=== PATIENT | male | born 1940 | race Caucasian/White ===

== ENCOUNTER 2019-03-30 09:15 | Day surgery (SDC) | payer MEDICARE, MEDICAID ==
[~2019-03-30 09:15] MED LIST: AMLO10TA13 PO; BENA40TA8 PO; DOXA1TAB2 PO; GLIM4TAB79 PO; INSU100V9 SQ; METF500T7 PO; NAPR-996 PO; OMEP-50 PO; PIOG45TA65 PO; POTA8TAB8 PO; SIMV20TA5 PO
[2019-03-30] MEDS ORDERED: FURO-149 PO (10:04)
[2019-03-30] MEDS ORDERED: silver sulfadiazine cream 50gm TP ONE (10:13)
--- NOTE | 2019-03-30 11:00 | NUR ---
Patient arrived via wheelchair from [facility] and was admitted to outpatient wound care for physician visit with Leoncio Reid MD. Wound cleansed. New patient assessment completed with review of patient's medical history, current medications and allergies. 1000 - Dr. Reid at bedside accompanied by RN. Wound assessed, time out performed by MD/RN. Wound debrided as detailed in the physician progress/procedure note. Plan of care discussed with patient. Dressings placed per MD orders. Pt instructed to elevate legs at least 30 minutes 3 times a day or 10 minutes every 4 hours, also instructed check their toes. If they become purplish or blue, cool to the touch, numb or tingly, use a pair of scissors and carefully cut off the dressing. Call the Wound Center for an appointment to have the dressing reapplied. Pt instructed that decreased swelling in the legs and the potential for drainage from the wound may require them to have to schedule visits twice weekly, progressing to weekly as the swelling decreases in their legs. Pt instructed that if dressings become loose, wrinkled or falls down and if they are experiencing any pain or discomfort under their dressing cut the dressing off and call the Wound Center to have it reapplied. Pt instructed that the wrap needs to be kept dry. They may bath at a sink or there are devices designed to keep dressings dry these are available at most drug stores. If they choose to shower with a plastic bag taped over the wrap. Be sure to having another person available for assistance or placing towels on the floor of the shower or tub to eliminate the slick surface can reduce the risk of falls. Patient instructed on the signs and symptoms of infection and to call the Wound Center if any occur or to go to the ED if we are closed: Increased pain in wound Increase in drainage from the wound Redness in the skin surrounding the wound Bleeding from the wound Temperature of 101 or greater Patient instructed that the weight of their body puts a large amount of pressure on their wounds. This pressure keeps the new tissue from growing and inhibits new blood vessels from forming. Explained that, if they continue to bear weight on a body part that has a wound, the time it takes to heal the wound increases, the wound may get worse or the wound may not heal at all. Patient verbalized understanding of all discharge instructions and plan of care and exited via wheelchair out to [facility] in stable condition with no sign or symptom of distress at time of discharge.
== END 2019-03-30 10:30 | disposition home or self-care (01) ==
LOC: WOUND CARE 09:15
PROVIDERS: ATTEND Surgery
DX: I83.212 Varicose veins of right lower extremity with both ulcer of calf and inflammation (principal); E11.622 Type 2 diabetes mellitus with other skin ulcer; L97.212 Non-pressure chronic ulcer of right calf with fat layer exposed; L97.811 Non-pressure chronic ulcer of other part of right lower leg limited to breakdown of skin; I10 Essential (primary) hypertension; I25.2 Old myocardial infarction; F41.9 Anxiety disorder, unspecified; Z79.899 Other long term (current) drug therapy
CPT/HCPCS: 29581; 97597; A6223; A6212; A6441

== ENCOUNTER 2019-04-06 08:05 | Outpatient (CLI) | payer MEDICARE, MEDICAID ==
[~2019-04-06 08:05] MED LIST changes: +FURO-149 PO; -METF500T7 PO; -POTA8TAB8 PO; -SIMV20TA5 PO
--- NOTE | 2019-04-06 11:00 | NUR ---
Patient arrived from [facility] and was admitted to outpatient wound care for physician visit with Leoncio Reid MD. Dressing removed, wound cleansed. Patient assessed for changes in conditions, medications and medical history. 0944 - blood glucose 204. Patient instructed that elevated blood sugars delay healing of the wound and can cause further complications including but not limited to amputation of toes or feet. 1020 - Dr. Reid at bedside accompanied by RN. Wound assessed by MD and is declared healed. Patient is discharged from the clinic to follow up on an as needed basis. Plan of care discussed with patient. Dressings placed per MD orders. Pt instructed to elevate legs at least 30 minutes 3 times a day or 10 minutes every 4 hours, also instructed check their toes. If they become purplish or blue, cool to the touch, numb or tingly, use a pair of scissors and carefully cut off the dressing. Call the Wound Center for an appointment to have the dressing reapplied. Pt instructed that decreased swelling in the legs and the potential for drainage from the wound may require them to have to schedule visits twice weekly, progressing to weekly as the swelling decreases in their legs. Pt instructed that if dressings become loose, wrinkled or falls down and if they are experiencing any pain or discomfort under their dressing cut the dressing off and call the Wound Center to have it reapplied. Pt instructed that the wrap needs to be kept dry. They may bath at a sink or there are devices designed to keep dressings dry these are available at most drug stores. If they choose to shower with a plastic bag taped over the wrap. Be sure to having another person available for assistance or placing towels on the floor of the shower or tub to eliminate the slick surface can reduce the risk of falls. Patient instructed on the signs and symptoms of infection and to call the Wound Center if any occur or to go to the ED if we are closed: Increased pain in wound Increase in drainage from the wound Redness in the skin surrounding the wound Bleeding from the wound Temperature of 101 or greater Patient instructed that the weight of their body puts a large amount of pressure on their wounds. This pressure keeps the new tissue from growing and inhibits new blood vessels from forming. Explained that, if they continue to bear weight on a body part that has a wound, the time it takes to heal the wound increases, the wound may get worse or the wound may not heal at all. Patient verbalized understanding of all discharge instructions and plan of care and exited out to lobby in stable condition with no sign or symptom of distress at time of discharge.
== END 2019-04-06 11:04 | disposition home or self-care (01) ==
LOC: WOUND CARE 08:05 → EDSTATUS 09:00 → WOUND CARE 11:04
PROVIDERS: ATTEND Surgery
DX: I83.212 Varicose veins of right lower extremity with both ulcer of calf and inflammation (principal); E11.622 Type 2 diabetes mellitus with other skin ulcer; L97.212 Non-pressure chronic ulcer of right calf with fat layer exposed; L97.811 Non-pressure chronic ulcer of other part of right lower leg limited to breakdown of skin; L97.821 Non-pressure chronic ulcer of other part of left lower leg limited to breakdown of skin; L89.322 Pressure ulcer of left buttock, stage 2; L98.411 Non-pressure chronic ulcer of buttock limited to breakdown of skin; I10 Essential (primary) hypertension; I25.2 Old myocardial infarction; F41.9 Anxiety disorder, unspecified; Z79.899 Other long term (current) drug therapy
CPT/HCPCS: 29581; 36416; 82948; A6021; A6212; A6441

== ENCOUNTER 2020-05-09 11:02 | Inpatient (IN) | payer MEDICARE, MEDICAID ==
[~2020-05-09] VITALS: Ht 185.4 cm; Wt 163.2 kg
[~2020-05-09 11:02] MED LIST changes: +GLIM4TAB7 PO; -GLIM4TAB79 PO
[2020-05-09 11:31] LABS: BASOPHILS % (AUTO) 0.5 % (0-1); EOSINOPHILS # (AUTO) 0.4 X10'3 (0-0.9); EOSINOPHILS % (AUTO) 5.2 % (0-6); HEMATOCRIT 32.8 % (42.0-52.0); HEMOGLOBIN 10.9 g/dl (14.0-17.9); LYMPHOCYTES # (AUTO) 1.2 X10'3 (1.1-4.8); LYMPHOCYTES % (AUTO) 15.2 % (21-51); MEAN CORPUSCULAR HEMOGLOBIN 28.7 PG (27.0-31.0); MEAN CORPUSCULAR HGB CONC 33.1 g/dL (33.0-36.5); MEAN CORPUSCULAR VOLUME 86.5 FL (78-98); MEAN PLATELET VOLUME 8.1 FL (7.4-10.4); MONOCYTES # (AUTO) 0.5 X10'3 (0-0.9); MONOCYTES % (AUTO) 6.4 % (2-12); NEUTROPHILS # (AUTO) 5.6 X10'3 (1.8-7.7); NEUTROPHILS % (AUTO) 72.7 % (42-75); PLATELET COUNT 182 X10'3 (140-440); RED BLOOD COUNT 3.79 X10'6 (4.70-6.10); RED CELL DISTRIBUTION WIDTH 15.5 % (11.5-14.5); WHITE BLOOD COUNT 7.7 X10'3 (4.5-11.0)
[2020-05-09 12:02] LABS: ALANINE AMINOTRANSFERASE 18 U/L (12-78); ALBUMIN 2.6 G/DL (3.4-5.0); ALBUMIN/GLOBULIN RATIO 0.6 (1.1-1.5); ALKALINE PHOSPHATASE 43 IU/L (46-116); ANION GAP 5 (8-16); ASPARTATE AMINO TRANSFERASE 10 U/L (10-37); BILIRUBIN,TOTAL 0.7 MG/DL (0.1-1.0); BLOOD UREA NITROGEN 39 MG/DL (7-18); BUN/CREATININE RATIO 22.7 (5.4-32.0); CALCIUM 8.7 MG/DL (8.5-10.1); CHLORIDE 108 MMOL/L (99-107); CREATININE 1.72 MG/DL (0.60-1.10); GLUCOSE 87 MG/DL (70-104); POTASSIUM 4.8 MMOL/L (3.5-5.1); SODIUM 140 MMOL/L (135-145); TOTAL CARBON DIOXIDE 27.5 MMOL/L (24-32); TOTAL PROTEIN 7.1 G/DL (6.4-8.2); eGFR 39 ML/MIN
[2020-05-09 12:10] LABS: MAGNESIUM 2.1 MG/DL (1.5-2.4)
[2020-05-09] MEDS ORDERED: magnesium hydroxide 30ml (MOM) UD suspension PO PRN (13:30)
[2020-05-09] MEDS ORDERED: ondansetron/PF 4mg/2ml inj IV PRN (13:30)
[2020-05-09] MEDS ORDERED: mag hydrox/Alum hydrox/simeth 30ml oral suspension PO PRN (13:30)
[2020-05-09] MEDS ORDERED: acetaminophen 325mg tablet PO PRN (13:30)
[2020-05-09] MEDS ORDERED: VANC125C5 PO (13:44)
[2020-05-09] MEDS ORDERED: TERA2CAP4 PO (13:44)
[2020-05-09] MEDS ORDERED: NIFE30TA95 PO (13:44)
[2020-05-09] MEDS ORDERED: CARV-50 PO (13:44)
[2020-05-09] MEDS ORDERED: FLUT1BLS3 PO (13:44)
[2020-05-09] MEDS ORDERED: CHLO25TA10 PO (13:44)
[2020-05-09] MEDS ORDERED: NYSPWD TOP (13:44)
[2020-05-09] MEDS ORDERED: PANT40TA4 PO (13:44)
[2020-05-09] MEDS: furosemide 10 MG/1 ML 10ml inj IV SCH ×2 (13:45→20:58)
[2020-05-09] MEDS ORDERED: INSU100V9 SQ (13:47)
[2020-05-09] MEDS ORDERED: LACT1CAP65 PO (13:47)
--- NOTE | 2020-05-09 15:20 | NUR ---
Received patient report from Stephanie WELLS, awaiting patient arrival to PCU
[2020-05-09 15:40] VITALS: BP 162/80
--- NOTE | 2020-05-09 15:40 | NUR ---
Patient arrived to PCU, VSS
--- NOTE | 2020-05-09 18:21 | NUR ---
Problems reprioritized. Patient report given, questions answered & plan of care reviewed with Georgia WELLS.
--- NOTE | 2020-05-09 18:30 | NUR ---
Patient in room PCU 3018. I have received report from Danyelle WELLS and had the opportunity to ask questions and assume patient care.
[2020-05-09] MEDS: budesonide 0.5mg/2ml UD nebule IH SCH (20:17)
[2020-05-09] MEDS: albuterol 2.5 MG/3 ML nebule NEB SCH (20:17)
[2020-05-09] MEDS: carVEDilol 12.5mg tablet PO SCH (20:58)
[2020-05-09] MEDS: lactobacillus rhamnosus 10,000 MMU CELLS/CAPSULE PO SCH (20:59)
[2020-05-09] MEDS: VANCOMYCIN 125 MG/5 ML oral SOLN.RECON 5mL UD syringe (FIRVANQ) PO SCH (21:02)
[2020-05-09] MEDS: nystatin 15 GM powder TP SCH (21:03)
[2020-05-09] MEDS: Terazosin 1mg capsule PO SCH (21:04)
[2020-05-09] MEDS: insulin glargine (Lantus) pen - multi-dose SQ SCH (21:24)
[2020-05-09 23:07] VITALS: BP 117/54
[2020-05-10] MEDS: VANCOMYCIN 125 MG/5 ML oral SOLN.RECON 5mL UD syringe (FIRVANQ) PO SCH ×4 (02:00→20:19)
[2020-05-10] MEDS: albuterol 2.5 MG/3 ML nebule NEB SCH ×4 (02:51→21:10)
[2020-05-10 03:00] VITALS: BP 117/60
[2020-05-10 05:57] LABS: BASOPHILS # (AUTO) 0.1 X10'3 (0-0.2); BASOPHILS % (AUTO) 0.9 % (0-1); EOSINOPHILS # (AUTO) 0.5 X10'3 (0-0.9); EOSINOPHILS % (AUTO) 6.1 % (0-6); HEMATOCRIT 33.8 % (42.0-52.0); HEMOGLOBIN 11.3 g/dl (14.0-17.9); LYMPHOCYTES # (AUTO) 1.1 X10'3 (1.1-4.8); LYMPHOCYTES % (AUTO) 14.7 % (21-51); MEAN CORPUSCULAR HGB CONC 33.4 g/dL (33.0-36.5); MEAN CORPUSCULAR VOLUME 86.8 FL (78-98); MONOCYTES # (AUTO) 0.7 X10'3 (0-0.9); MONOCYTES % (AUTO) 8.9 % (2-12); NEUTROPHILS # (AUTO) 5.2 X10'3 (1.8-7.7); NEUTROPHILS % (AUTO) 69.4 % (42-75); PLATELET COUNT 183 X10'3 (140-440); RED BLOOD COUNT 3.89 X10'6 (4.70-6.10); RED CELL DISTRIBUTION WIDTH 15.5 % (11.5-14.5); WHITE BLOOD COUNT 7.5 X10'3 (4.5-11.0)
[2020-05-10 06:09] LABS: ALBUMIN 2.5 G/DL (3.4-5.0); ANION GAP 6 (8-16); BLOOD UREA NITROGEN 40 MG/DL (7-18); BUN/CREATININE RATIO 24.7 (5.4-32.0); CALCIUM 9.4 MG/DL (8.5-10.1); CHLORIDE 107 MMOL/L (99-107); CREATININE 1.62 MG/DL (0.60-1.10); GLUCOSE 103 MG/DL (70-104); POTASSIUM 4.5 MMOL/L (3.5-5.1); SODIUM 141 MMOL/L (135-145); TOTAL CARBON DIOXIDE 27.6 MMOL/L (24-32); eGFR 41 ML/MIN
--- NOTE | 2020-05-10 06:10 | NUR ---
Problems reprioritized. Patient report given, questions answered & plan of care reviewed with Danyelle and Siobhan RNs.
--- NOTE | 2020-05-10 06:11 | NUR ---
pt rested through the night. voided in urinal. no complaints or signs of distress noted. pt in recliner, he usually sleeps in recliner
--- NOTE | 2020-05-10 06:26 | NUR ---
Patient in room PCU 3018. I have received report from Georgia WELLS and had the opportunity to ask questions and assume patient care.
--- NOTE | 2020-05-10 06:53 | NUR ---
Patient in room PCU 3018. I have received report from Georgia EWLLS and had the opportunity to ask questions and assume patient care.
[2020-05-10 07:00] VITALS: BP 125/51
[2020-05-10] MEDS: pantoprazole 40mg Tablet.DR PO SCH (07:54)
[2020-05-10] MEDS: furosemide 10 MG/1 ML 10ml inj IV SCH ×2 (07:54→20:04)
[2020-05-10] MEDS: lactobacillus rhamnosus 10,000 MMU CELLS/CAPSULE PO SCH ×2 (07:54→20:06)
[2020-05-10] MEDS: carVEDilol 12.5mg tablet PO SCH ×2 (07:55→20:06)
[2020-05-10] MEDS: NIFEdipine XL 30mg tablet PO SCH (07:55)
[2020-05-10] MEDS: nystatin 15 GM powder TP SCH ×2 (07:56→20:07)
[2020-05-10] MEDS ORDERED: non-formulary drug (Fluticasone/Vilanterol (Breo Ellipta 200-25 Mcg INH) 1 PUFF) PO SCH (08:00)
[2020-05-10] MEDS ORDERED: pioglitazone 45mg tablet PO SCH (08:00)
--- NOTE | 2020-05-10 08:34 | NUR ---
Patient stated he did not want to take PO dose of AM Vanco because he was done with Vanco on 05/09 when outside the hospital.
[2020-05-10] MEDS: budesonide 0.5mg/2ml UD nebule IH SCH ×2 (08:39→21:10)
[2020-05-10] MEDS ORDERED: dextrose 50%-water 50ml dispensing syringe IV PRN ×2 (10:00)
[2020-05-10] MEDS ORDERED: insulin Lispro (HumaLOG) vial - multi-dose SQ SCH (10:00)
[2020-05-10] MEDS ORDERED: glucagon, human recombinant 1mg kit SUBCUT PRN (10:00)
[2020-05-10] MEDS ORDERED: MESSAGE TO PHARMACY PO ONE (10:00)
[2020-05-10] MEDS ORDERED: dextrose ORAL solution 15 GM/59 ML bottle PO PRN ×2 (10:00)
--- NOTE | 2020-05-10 10:01 | NUR ---
Spoke with Dr Brown re this patients plan of care, received orders to start hyper/hypoglycemia management as well as PT. aware that patient is refusing PO vanco. Will continue to monitor the patient closely.
[2020-05-10 11:00] VITALS: BP 127/56
--- NOTE | 2020-05-10 11:29 | NUR ---
Dr Brown at bedside assessing patient, received verbal orders for BLE arterial US to be performed in order to be able to put compression wrappings on BLE wounds, will continue to monitor the patient closely
[2020-05-10 15:00] VITALS: BP 104/48
--- NOTE | 2020-05-10 17:14 | NUR ---
[place] documentation: I have reviewed and agree with all interventions, assessments performed and documented by Mary WELLS [place] Medication Administration: For this medication-pass time frame, all medication were reviewed, dispensed, administered and documented per hospital policy by Mary WELLS.
[2020-05-10 18:00] VITALS: BP 131/51
--- NOTE | 2020-05-10 18:15 | NUR ---
Patient in room PCU 3018. I have received report from Danyelle WELLS and had the opportunity to ask questions and assume patient care.
--- NOTE | 2020-05-10 18:23 | NUR ---
Problems reprioritized. Patient report given, questions answered & plan of care reviewed with Monique WELLS.
[2020-05-10] MEDS: Terazosin 1mg capsule PO SCH (20:06)
[2020-05-10] MEDS ORDERED: insulin glargine (Lantus) pen - multi-dose SQ SCH (21:00)
[2020-05-10] MEDS: insulin glargine (Lantus) pen - multi-dose SQ SCH (21:00)
[2020-05-10 22:00] VITALS: BP 125/53
[2020-05-11 02:00] VITALS: BP 110/51
[2020-05-11] MEDS: albuterol 2.5 MG/3 ML nebule NEB SCH ×4 (02:34→20:42)
[2020-05-11] MEDS: VANCOMYCIN 125 MG/5 ML oral SOLN.RECON 5mL UD syringe (FIRVANQ) PO SCH ×4 (02:54→20:00)
[2020-05-11 06:00] VITALS: BP 136/58
[2020-05-11 06:03] LABS: BASOPHILS # (AUTO) 0.1 X10'3 (0-0.2); BASOPHILS % (AUTO) 0.8 % (0-1); EOSINOPHILS # (AUTO) 0.4 X10'3 (0-0.9); EOSINOPHILS % (AUTO) 6.1 % (0-6); HEMATOCRIT 33.2 % (42.0-52.0); HEMOGLOBIN 11.1 g/dl (14.0-17.9); LYMPHOCYTES # (AUTO) 1.4 X10'3 (1.1-4.8); LYMPHOCYTES % (AUTO) 20.6 % (21-51); MEAN CORPUSCULAR HEMOGLOBIN 29.1 PG (27.0-31.0); MEAN CORPUSCULAR HGB CONC 33.6 g/dL (33.0-36.5); MEAN CORPUSCULAR VOLUME 86.7 FL (78-98); MEAN PLATELET VOLUME 8.2 FL (7.4-10.4); MONOCYTES # (AUTO) 0.6 X10'3 (0-0.9); MONOCYTES % (AUTO) 9.1 % (2-12); NEUTROPHILS # (AUTO) 4.5 X10'3 (1.8-7.7); NEUTROPHILS % (AUTO) 63.4 % (42-75); PLATELET COUNT 196 X10'3 (140-440); RED BLOOD COUNT 3.83 X10'6 (4.70-6.10); RED CELL DISTRIBUTION WIDTH 15.6 % (11.5-14.5)
[2020-05-11 06:19] LABS: ALBUMIN 2.7 G/DL (3.4-5.0); ANION GAP 7 (8-16); BLOOD UREA NITROGEN 42 MG/DL (7-18); BUN/CREATININE RATIO 21.8 (5.4-32.0); CALCIUM 9.3 MG/DL (8.5-10.1); CHLORIDE 106 MMOL/L (99-107); CREATININE 1.93 MG/DL (0.60-1.10); GLUCOSE 121 MG/DL (70-104); POTASSIUM 4.2 MMOL/L (3.5-5.1); SODIUM 140 MMOL/L (135-145); TOTAL CARBON DIOXIDE 27.2 MMOL/L (24-32); eGFR 34 ML/MIN
--- NOTE | 2020-05-11 06:36 | NUR ---
Problems reprioritized. Patient report given, questions answered & plan of care reviewed with Bernadette Muñiz.
[2020-05-11] MEDS: nystatin 15 GM powder TP SCH ×2 (08:09→21:27)
[2020-05-11] MEDS: carVEDilol 12.5mg tablet PO SCH ×2 (08:10→21:25)
[2020-05-11] MEDS: furosemide 10 MG/1 ML 10ml inj IV SCH (08:10)
[2020-05-11] MEDS: lactobacillus rhamnosus 10,000 MMU CELLS/CAPSULE PO SCH ×2 (08:10→21:26)
[2020-05-11] MEDS: NIFEdipine XL 30mg tablet PO SCH (08:11)
[2020-05-11] MEDS: pantoprazole 40mg Tablet.DR PO SCH (08:11)
[2020-05-11] MEDS: budesonide 0.5mg/2ml UD nebule IH SCH ×2 (08:30→20:43)
[2020-05-11 11:00] VITALS: BP 106/44
--- NOTE | 2020-05-11 14:49 | NUR ---
DM Consult: A1C 8.3. Pt admit w/ CHF exacerbation, acute on chronic kidney disease, EF 60%, and hx chronic BLE lymphedema. Coccyx partial thickness area w/ BLE red/necrotic venous ulcer noted per EMR. Pt unable to wake from sleep during RD visit; written high protein/DM eds w/ RD contact information placed at bedside. Pt PO 100% avg carb controlled/heart healthy meals partially meeting wound needs given wt. Double eggs at breakfast and double meats BIDLD added given good appetite for additional proteins. [facility] 05/09. Will continue to monitor. Rec: 1. continue carb controlled/heart healthy meals 2. double eggs at breakfast; double meats BIDLD 3. bowel care per rx 4. weekly wts Addendum: 05/11/20 at [address] Amended: Links added.
[2020-05-11 15:00] VITALS: BP 136/62
[2020-05-11 18:00] VITALS: BP 133/57
--- NOTE | 2020-05-11 18:20 | NUR ---
Problems reprioritized. Patient report given, questions answered & plan of care reviewed with Dave WELLS.
--- NOTE | 2020-05-11 18:30 | NUR ---
Patient in room PCU 3018. I have received report from Bernadette WELLS and had the opportunity to ask questions and assume patient care.
[2020-05-11] MEDS: insulin glargine (Lantus) pen - multi-dose SQ SCH (21:20)
[2020-05-11] MEDS: Terazosin 1mg capsule PO SCH (21:26)
[2020-05-11 22:00] VITALS: BP 119/49
[2020-05-12 02:00] VITALS: BP 123/57
[2020-05-12] MEDS: VANCOMYCIN 125 MG/5 ML oral SOLN.RECON 5mL UD syringe (FIRVANQ) PO SCH ×4 (02:27→20:38)
[2020-05-12] MEDS: albuterol 2.5 MG/3 ML nebule NEB SCH ×4 (02:47→21:05)
[2020-05-12 05:35] LABS: BASOPHILS # (AUTO) 0.1 X10'3 (0-0.2); EOSINOPHILS # (AUTO) 0.4 X10'3 (0-0.9); EOSINOPHILS % (AUTO) 5.3 % (0-6); HEMATOCRIT 33.6 % (42.0-52.0); HEMOGLOBIN 11.2 g/dl (14.0-17.9); LYMPHOCYTES # (AUTO) 1.2 X10'3 (1.1-4.8); LYMPHOCYTES % (AUTO) 16.1 % (21-51); MEAN CORPUSCULAR HEMOGLOBIN 28.9 PG (27.0-31.0); MEAN CORPUSCULAR HGB CONC 33.2 g/dL (33.0-36.5); MEAN CORPUSCULAR VOLUME 86.9 FL (78-98); MEAN PLATELET VOLUME 7.8 FL (7.4-10.4); MONOCYTES # (AUTO) 0.7 X10'3 (0-0.9); MONOCYTES % (AUTO) 8.8 % (2-12); NEUTROPHILS # (AUTO) 5.1 X10'3 (1.8-7.7); NEUTROPHILS % (AUTO) 68.8 % (42-75); PLATELET COUNT 211 X10'3 (140-440); RED BLOOD COUNT 3.86 X10'6 (4.70-6.10); RED CELL DISTRIBUTION WIDTH 15.4 % (11.5-14.5); WHITE BLOOD COUNT 7.4 X10'3 (4.5-11.0)
[2020-05-12 05:41] LABS: ALBUMIN 2.7 G/DL (3.4-5.0); ANION GAP 5 (8-16); BLOOD UREA NITROGEN 43 MG/DL (7-18); BUN/CREATININE RATIO 22.6 (5.4-32.0); CALCIUM 9.6 MG/DL (8.5-10.1); CHLORIDE 106 MMOL/L (99-107); GLUCOSE 97 MG/DL (70-104); POTASSIUM 4.5 MMOL/L (3.5-5.1); SODIUM 140 MMOL/L (135-145); TOTAL CARBON DIOXIDE 28.6 MMOL/L (24-32); eGFR 34 ML/MIN
[2020-05-12 06:00] VITALS: BP 138/52
--- NOTE | 2020-05-12 06:27 | NUR ---
Patient in room PCU 3018. I have received report from PRISCILLA Gamez and had the opportunity to ask questions and assume patient care.
--- NOTE | 2020-05-12 06:31 | NUR ---
Problems reprioritized. Patient report given, questions answered & plan of care reviewed with Ivan WELLS.
[2020-05-12] MEDS: NIFEdipine XL 30mg tablet PO SCH (07:27)
[2020-05-12] MEDS: lactobacillus rhamnosus 10,000 MMU CELLS/CAPSULE PO SCH ×2 (07:27→20:38)
[2020-05-12] MEDS: carVEDilol 12.5mg tablet PO SCH ×2 (07:27→20:39)
[2020-05-12] MEDS: pantoprazole 40mg Tablet.DR PO SCH (07:27)
[2020-05-12] MEDS: furosemide 10 MG/1 ML 10ml inj IV SCH (07:28)
[2020-05-12] MEDS: nystatin 15 GM powder TP SCH ×2 (07:32→20:42)
[2020-05-12] MEDS: budesonide 0.5mg/2ml UD nebule IH SCH ×2 (09:00→21:04)
[2020-05-12 11:00] VITALS: BP 125/47
[2020-05-12 15:00] VITALS: BP 115/65
--- NOTE | 2020-05-12 18:10 | NUR ---
Problems reprioritized. Patient report given, questions answered & plan of care reviewed with Franco RN.
--- NOTE | 2020-05-12 18:30 | NUR ---
Patient in room PCU 3018. I have received report from Ivan WELLS and had the opportunity to ask questions and assume patient care.
[2020-05-12 19:00] VITALS: BP 126/51
[2020-05-12] MEDS: Terazosin 1mg capsule PO SCH (20:39)
[2020-05-12] MEDS: insulin glargine (Lantus) pen - multi-dose SQ SCH (22:09)
[2020-05-12 23:00] VITALS: BP 109/46
[2020-05-13] MEDS: VANCOMYCIN 125 MG/5 ML oral SOLN.RECON 5mL UD syringe (FIRVANQ) PO SCH ×2 (02:43→08:21)
[2020-05-13 03:00] VITALS: BP 141/51
[2020-05-13] MEDS: albuterol 2.5 MG/3 ML nebule NEB SCH ×2 (03:32→07:00)
[2020-05-13 06:00] VITALS: BP 115/50
--- NOTE | 2020-05-13 06:21 | NUR ---
Problems reprioritized. Patient report given, questions answered & plan of care reviewed with Yvette WELLS.
[2020-05-13 06:30] LABS: BASOPHILS # (AUTO) 0.1 X10'3 (0-0.2); BASOPHILS % (AUTO) 1.1 % (0-1); EOSINOPHILS # (AUTO) 0.4 X10'3 (0-0.9); EOSINOPHILS % (AUTO) 5.6 % (0-6); HEMATOCRIT 31.8 % (42.0-52.0); HEMOGLOBIN 10.6 g/dl (14.0-17.9); LYMPHOCYTES # (AUTO) 1.1 X10'3 (1.1-4.8); LYMPHOCYTES % (AUTO) 15.1 % (21-51); MEAN CORPUSCULAR HEMOGLOBIN 28.7 PG (27.0-31.0); MEAN CORPUSCULAR HGB CONC 33.4 g/dL (33.0-36.5); MEAN CORPUSCULAR VOLUME 86.1 FL (78-98); MONOCYTES # (AUTO) 0.7 X10'3 (0-0.9); MONOCYTES % (AUTO) 9.6 % (2-12); NEUTROPHILS # (AUTO) 5.1 X10'3 (1.8-7.7); NEUTROPHILS % (AUTO) 68.6 % (42-75); PLATELET COUNT 213 X10'3 (140-440); RED BLOOD COUNT 3.69 X10'6 (4.70-6.10); RED CELL DISTRIBUTION WIDTH 15.3 % (11.5-14.5); WHITE BLOOD COUNT 7.4 X10'3 (4.5-11.0)
[2020-05-13 06:39] LABS: ALBUMIN 2.5 G/DL (3.4-5.0); ANION GAP 6 (8-16); BLOOD UREA NITROGEN 44 MG/DL (7-18); BUN/CREATININE RATIO 21.8 (5.4-32.0); CALCIUM 9.2 MG/DL (8.5-10.1); CHLORIDE 106 MMOL/L (99-107); CREATININE 2.02 MG/DL (0.60-1.10); GLUCOSE 139 MG/DL (70-104); POTASSIUM 4.2 MMOL/L (3.5-5.1); SODIUM 140 MMOL/L (135-145); TOTAL CARBON DIOXIDE 28.1 MMOL/L (24-32); eGFR 32 ML/MIN
[2020-05-13] MEDS: budesonide 0.5mg/2ml UD nebule IH SCH (07:00)
[2020-05-13] MEDS: nystatin 15 GM powder TP SCH (08:22)
[2020-05-13] MEDS: lactobacillus rhamnosus 10,000 MMU CELLS/CAPSULE PO SCH (08:25)
[2020-05-13] MEDS: furosemide 10 MG/1 ML 10ml inj IV SCH (08:25)
[2020-05-13] MEDS: NIFEdipine XL 30mg tablet PO SCH (08:25)
[2020-05-13] MEDS: pantoprazole 40mg Tablet.DR PO SCH (08:25)
[2020-05-13] MEDS: carVEDilol 12.5mg tablet PO SCH (08:25)
[2020-05-13 11:00] VITALS: BP 120/50
--- NOTE | 2020-05-13 12:45 | NUR ---
Discharge wound documentation: Mr. Schofield will be seen in wound clinic on Friday. The pressure wrap will be removed then. Coccyx area is documented. All pressure wrapped lower extremity areas will not be photographed at this time due to the possibility of wound treatment disruption.
--- NOTE | 2020-05-13 13:30 | NUR ---
Discharge home: Will continue with scheduled treatments at wound clinic. Pt. has good understanding of self care and follow up. Pt. requests [employer] on discharge. All belongsing are gathered and packed. Pt. has no additional questions regarding this hospitalization. Instruction is provided to Pt. with handouts.
== END 2020-05-13 13:13 | disposition home health service (06) | DRG 291 ==
LOC: ER 11:03 → ED HOLD 13:27 → PCU 3S 15:40
PROVIDERS: ADMIT Family Medicine; ATTEND Family Medicine
DX: I13.0 Hypertensive heart and chronic kidney disease with heart failure and stage 1 through stage 4 chronic kidney disease, or unspecified chronic kidney disease (principal); I50.43 Acute on chronic combined systolic (congestive) and diastolic (congestive) heart failure; N17.9 Acute kidney failure, unspecified; Z68.42 Body mass index [BMI] 45.0-49.9, adult; I89.0 Lymphedema, not elsewhere classified; N18.9 Chronic kidney disease, unspecified; I48.91 Unspecified atrial fibrillation; F41.9 Anxiety disorder, unspecified; E11.22 Type 2 diabetes mellitus with diabetic chronic kidney disease; I87.8 Other specified disorders of veins; E66.01 Morbid (severe) obesity due to excess calories; Z88.8 Allergy status to other drugs, medicaments and biological substances; I25.2 Old myocardial infarction
CPT/HCPCS: 36415; 71045; 80048; 80053; 82948; 83036; 83735; 83880; 84145; 84484; 85025; 87081; 93005; 93306; 93925; 94640; 94760; 97110; 97116; 97161; 97530; 99285; G0378; J1815; J1940; J7626

== ENCOUNTER 2020-05-19 17:37 | Emergency (ER) | payer MEDICARE, MEDICAID ==
[~2020-05-19] VITALS: Ht 185.4 cm; Wt 159.1 kg
[~2020-05-19 17:37] MED LIST changes: -AMLO10TA13 PO; -BENA40TA8 PO; +CARV-50 PO; -DOXA1TAB2 PO; +FLUT1BLS3 PO; +LACT1CAP65 PO; -NAPR-996 PO; +NIFE30TA95 PO; +NYSPWD TOP; -OMEP-50 PO; +PANT40TA4 PO; +TERA2CAP4 PO; +VANC125C5 PO
[2020-05-19] MEDS ORDERED: vancomycin/NS 1 GM ADD-VANTAGE 250 ML IV ONE (17:55)
[2020-05-19 18:32] LABS: BASOPHILS # (AUTO) 0.1 X10'3 (0-0.2); BASOPHILS % (AUTO) 0.9 % (0-1); EOSINOPHILS # (AUTO) 0.3 X10'3 (0-0.9); EOSINOPHILS % (AUTO) 2.4 % (0-6); HEMOGLOBIN 10.9 g/dl (14.0-17.9); LYMPHOCYTES # (AUTO) 1.5 X10'3 (1.1-4.8); LYMPHOCYTES % (AUTO) 13.8 % (21-51); MEAN CORPUSCULAR HEMOGLOBIN 28.7 PG (27.0-31.0); MEAN CORPUSCULAR VOLUME 86.9 FL (78-98); MEAN PLATELET VOLUME 8.2 FL (7.4-10.4); MONOCYTES # (AUTO) 0.7 X10'3 (0-0.9); MONOCYTES % (AUTO) 6.4 % (2-12); NEUTROPHILS # (AUTO) 8.4 X10'3 (1.8-7.7); NEUTROPHILS % (AUTO) 76.5 % (42-75); PLATELET COUNT 227 X10'3 (140-440); RED BLOOD COUNT 3.79 X10'6 (4.70-6.10); RED CELL DISTRIBUTION WIDTH 15.6 % (11.5-14.5)
[2020-05-19 18:39] LABS: CLARITY,URINE CLEAR (Clear); COLOR,URINE YELLOW (Yellow); GLUCOSE, URINE 500 mg/dl (Neg); KETONES,URINE NEGATIVE (Neg); LEUKOCYTE ESTERASE ,URINE NEGATIVE (Neg); NITRITES, URINE NEGATIVE (Neg); OCCULT BLOOD,URINE NEGATIVE (Neg); PROTEIN,URINE NEGATIVE (Neg); UROBILINOGEN,URINE 0.2 E.U/dL (0.2-1.0)
[2020-05-19 18:45] LABS: UA COLLECTION TYPE CLN CATCH MIDSTREAM
[2020-05-19 19:01] LABS: ALANINE AMINOTRANSFERASE 24 U/L (12-78); ALBUMIN 2.6 G/DL (3.4-5.0); ALBUMIN/GLOBULIN RATIO 0.6 (1.1-1.5); ALKALINE PHOSPHATASE 47 IU/L (46-116); ANION GAP 7 (8-16); ASPARTATE AMINO TRANSFERASE 16 U/L (10-37); BILIRUBIN,TOTAL 0.5 MG/DL (0.1-1.0); BLOOD UREA NITROGEN 38 MG/DL (7-18); BUN/CREATININE RATIO 21.2 (5.4-32.0); CHLORIDE 104 MMOL/L (99-107); CREATININE 1.79 MG/DL (0.60-1.10); GLUCOSE 209 MG/DL (70-104); POTASSIUM 4.5 MMOL/L (3.5-5.1); SODIUM 138 MMOL/L (135-145); TOTAL CARBON DIOXIDE 27.3 MMOL/L (24-32); TOTAL PROTEIN 7.2 G/DL (6.4-8.2); eGFR 37 ML/MIN
[2020-05-19] MEDS ORDERED: VANC125C5 PO (19:22)
[2020-05-19 19:37] VITALS: BP 122/54
--- NOTE | 2020-05-19 19:41 | NUR ---
CALLED [employer] AT 19:40. [employer] IN ROUTE FOR TRANSPORT
== END 2020-05-19 20:00 | disposition home or self-care (01) ==
LOC: ER 17:38
DX: I89.0 Lymphedema, not elsewhere classified (principal); E11.65 Type 2 diabetes mellitus with hyperglycemia; E11.22 Type 2 diabetes mellitus with diabetic chronic kidney disease; N18.9 Chronic kidney disease, unspecified; I12.9 Hypertensive chronic kidney disease with stage 1 through stage 4 chronic kidney disease, or unspecified chronic kidney disease; I25.2 Old myocardial infarction; F41.9 Anxiety disorder, unspecified; Z98.890 Other specified postprocedural states; Z88.2 Allergy status to sulfonamides; Z79.4 Long term (current) use of insulin; Z79.899 Other long term (current) drug therapy
CPT/HCPCS: 36415; 80053; 81003; 82948; 83605; 83735; 84145; 85025; 87040; 93005; 96365; 96366; 99284; J3370

== ENCOUNTER 2020-06-01 08:30 | Day surgery (SDC) | payer MEDICARE, MEDICAID ==
[~2020-06-01 08:30] MED LIST changes: +LIDOcaine 2% 5ml jelly ONE
== END 2020-06-01 13:20 | disposition home or self-care (01) ==
LOC: WOUND CARE 08:30
PROVIDERS: ATTEND Nurse Practitioner
DX: E11.622 Type 2 diabetes mellitus with other skin ulcer (principal); L97.811 Non-pressure chronic ulcer of other part of right lower leg limited to breakdown of skin; L97.821 Non-pressure chronic ulcer of other part of left lower leg limited to breakdown of skin; L03.116 Cellulitis of left lower limb; L03.115 Cellulitis of right lower limb; E11.22 Type 2 diabetes mellitus with diabetic chronic kidney disease; I13.0 Hypertensive heart and chronic kidney disease with heart failure and stage 1 through stage 4 chronic kidney disease, or unspecified chronic kidney disease; I50.43 Acute on chronic combined systolic (congestive) and diastolic (congestive) heart failure; N18.9 Chronic kidney disease, unspecified; E11.65 Type 2 diabetes mellitus with hyperglycemia; I25.2 Old myocardial infarction; I89.0 Lymphedema, not elsewhere classified; E66.01 Morbid (severe) obesity due to excess calories; I48.91 Unspecified atrial fibrillation; F41.9 Anxiety disorder, unspecified; Z79.899 Other long term (current) drug therapy; Z79.4 Long term (current) use of insulin; Z98.890 Other specified postprocedural states; Z68.42 Body mass index [BMI] 45.0-49.9, adult
CPT/HCPCS: 29581; 36573; 76937; 82948

== ENCOUNTER 2020-06-08 10:20 | Day surgery (SDC) | payer MEDICARE, MEDICAID | END 2020-06-08 10:59 | disposition home or self-care (01) | LOC: WOUND CARE 10:20 | PROVIDERS: ATTEND Nurse Practitioner | DX: E11.622 Type 2 diabetes mellitus with other skin ulcer (principal); L97.811 Non-pressure chronic ulcer of other part of right lower leg limited to breakdown of skin; L97.821 Non-pressure chronic ulcer of other part of left lower leg limited to breakdown of skin; L03.116 Cellulitis of left lower limb; L03.115 Cellulitis of right lower limb; E11.22 Type 2 diabetes mellitus with diabetic chronic kidney disease; I13.0 Hypertensive heart and chronic kidney disease with heart failure and stage 1 through stage 4 chronic kidney disease, or unspecified chronic kidney disease; I50.43 Acute on chronic combined systolic (congestive) and diastolic (congestive) heart failure; N18.9 Chronic kidney disease, unspecified; E11.319 Type 2 diabetes mellitus with unspecified diabetic retinopathy without macular edema; E11.65 Type 2 diabetes mellitus with hyperglycemia; K21.9 Gastro-esophageal reflux disease without esophagitis; J44.9 Chronic obstructive pulmonary disease, unspecified; I25.2 Old myocardial infarction; I89.0 Lymphedema, not elsewhere classified; E66.01 Morbid (severe) obesity due to excess calories; I48.91 Unspecified atrial fibrillation; F41.9 Anxiety disorder, unspecified; Z79.899 Other long term (current) drug therapy; Z79.4 Long term (current) use of insulin; Z98.890 Other specified postprocedural states; Z68.42 Body mass index [BMI] 45.0-49.9, adult | CPT/HCPCS: 97597; 97598 ==

== ENCOUNTER 2020-06-15 10:31 | Day surgery (SDC) | payer MEDICARE, MEDICAID ==
[~2020-06-15 10:31] MED LIST changes: -LIDOcaine 2% 5ml jelly ONE
[2020-06-15] MEDS ORDERED: LIDOcaine 2% 5ml jelly ONE (10:47)
== END 2020-06-15 12:15 | disposition home or self-care (01) ==
LOC: WOUND CARE 10:31
PROVIDERS: ATTEND Nurse Practitioner
DX: E11.622 Type 2 diabetes mellitus with other skin ulcer (principal); L97.812 Non-pressure chronic ulcer of other part of right lower leg with fat layer exposed; L97.822 Non-pressure chronic ulcer of other part of left lower leg with fat layer exposed; L03.115 Cellulitis of right lower limb; L03.116 Cellulitis of left lower limb; I89.0 Lymphedema, not elsewhere classified; E11.65 Type 2 diabetes mellitus with hyperglycemia; E11.319 Type 2 diabetes mellitus with unspecified diabetic retinopathy without macular edema; E11.22 Type 2 diabetes mellitus with diabetic chronic kidney disease; I13.0 Hypertensive heart and chronic kidney disease with heart failure and stage 1 through stage 4 chronic kidney disease, or unspecified chronic kidney disease; N18.4 Chronic kidney disease, stage 4 (severe); I50.43 Acute on chronic combined systolic (congestive) and diastolic (congestive) heart failure; J44.9 Chronic obstructive pulmonary disease, unspecified; J18.9 Pneumonia, unspecified organism; I48.91 Unspecified atrial fibrillation; K21.9 Gastro-esophageal reflux disease without esophagitis; I25.2 Old myocardial infarction; E66.01 Morbid (severe) obesity due to excess calories; F41.9 Anxiety disorder, unspecified; Z68.42 Body mass index [BMI] 45.0-49.9, adult; Z88.2 Allergy status to sulfonamides; Z79.4 Long term (current) use of insulin; Z87.898 Personal history of other specified conditions; Z79.899 Other long term (current) drug therapy; Z98.49 Cataract extraction status, unspecified eye
CPT/HCPCS: 36416; 82948; 97597; 97598

== ENCOUNTER 2020-06-22 10:22 | Day surgery (SDC) | payer MEDICARE, MEDICAID ==
[~2020-06-22 10:22] MED LIST changes: -PANT40TA4 PO; +PANT40TA54 PO
[2020-06-22] MEDS ORDERED: LIDOcaine 2% 5ml jelly ONE (10:45)
[2020-06-22] MEDS ORDERED: gentamicin 0.1% topical ointment 15gm TP ONE (12:08)
== END 2020-06-22 12:36 | disposition home or self-care (01) ==
LOC: WOUND CARE 10:22
PROVIDERS: ATTEND Nurse Practitioner
DX: E11.622 Type 2 diabetes mellitus with other skin ulcer (principal); I83.018 Varicose veins of right lower extremity with ulcer other part of lower leg; L97.812 Non-pressure chronic ulcer of other part of right lower leg with fat layer exposed; E11.621 Type 2 diabetes mellitus with foot ulcer; I83.025 Varicose veins of left lower extremity with ulcer other part of foot; L97.822 Non-pressure chronic ulcer of other part of left lower leg with fat layer exposed; L03.115 Cellulitis of right lower limb; L03.116 Cellulitis of left lower limb; I89.0 Lymphedema, not elsewhere classified; E11.65 Type 2 diabetes mellitus with hyperglycemia; E11.319 Type 2 diabetes mellitus with unspecified diabetic retinopathy without macular edema; E11.22 Type 2 diabetes mellitus with diabetic chronic kidney disease; I13.0 Hypertensive heart and chronic kidney disease with heart failure and stage 1 through stage 4 chronic kidney disease, or unspecified chronic kidney disease; N18.4 Chronic kidney disease, stage 4 (severe); J44.9 Chronic obstructive pulmonary disease, unspecified; I50.43 Acute on chronic combined systolic (congestive) and diastolic (congestive) heart failure; J18.9 Pneumonia, unspecified organism; I48.91 Unspecified atrial fibrillation; K21.9 Gastro-esophageal reflux disease without esophagitis; I25.2 Old myocardial infarction; E66.01 Morbid (severe) obesity due to excess calories; F41.9 Anxiety disorder, unspecified; Z68.42 Body mass index [BMI] 45.0-49.9, adult; Z79.84 Long term (current) use of oral hypoglycemic drugs; Z87.898 Personal history of other specified conditions; Z79.899 Other long term (current) drug therapy; Z98.49 Cataract extraction status, unspecified eye; Z87.891 Personal history of nicotine dependence
CPT/HCPCS: 82948; 97597; 97598

== ENCOUNTER → 2020-06-29 | Day surgery (SDC) | payer MEDICARE, MEDICAID ==
[~2020-06-29] MED LIST changes: +LIDOcaine 2% 5ml jelly ONE; +gentamicin 0.1% topical ointment 15gm TP ONE
== END | disposition home or self-care (01) ==
LOC: WOUND CARE 08:15
PROVIDERS: ATTEND Nurse Practitioner
DX: E11.621 Type 2 diabetes mellitus with foot ulcer (principal); L97.522 Non-pressure chronic ulcer of other part of left foot with fat layer exposed; E11.622 Type 2 diabetes mellitus with other skin ulcer; L97.812 Non-pressure chronic ulcer of other part of right lower leg with fat layer exposed; L97.822 Non-pressure chronic ulcer of other part of left lower leg with fat layer exposed; L03.115 Cellulitis of right lower limb; L03.116 Cellulitis of left lower limb; I89.0 Lymphedema, not elsewhere classified; E11.65 Type 2 diabetes mellitus with hyperglycemia; E11.319 Type 2 diabetes mellitus with unspecified diabetic retinopathy without macular edema; E11.22 Type 2 diabetes mellitus with diabetic chronic kidney disease; I13.0 Hypertensive heart and chronic kidney disease with heart failure and stage 1 through stage 4 chronic kidney disease, or unspecified chronic kidney disease; N18.4 Chronic kidney disease, stage 4 (severe); I50.43 Acute on chronic combined systolic (congestive) and diastolic (congestive) heart failure; J44.9 Chronic obstructive pulmonary disease, unspecified; I48.91 Unspecified atrial fibrillation; K21.9 Gastro-esophageal reflux disease without esophagitis; I25.2 Old myocardial infarction; E66.01 Morbid (severe) obesity due to excess calories; F41.9 Anxiety disorder, unspecified; Z68.42 Body mass index [BMI] 45.0-49.9, adult; Z88.2 Allergy status to sulfonamides; Z79.4 Long term (current) use of insulin; Z87.898 Personal history of other specified conditions; Z79.899 Other long term (current) drug therapy; Z98.49 Cataract extraction status, unspecified eye
CPT/HCPCS: 82948; 97597; 97598

== ENCOUNTER 2020-07-04 07:19 | Day surgery (SDC) | payer MEDICARE, MEDICAID ==
[~2020-07-04] VITALS: Ht 185.4 cm; Wt 166.0 kg
[~2020-07-04 07:19] MED LIST changes: -LIDOcaine 2% 5ml jelly ONE; -gentamicin 0.1% topical ointment 15gm TP ONE
[2020-07-04] MEDS ORDERED: sodium bicarbonate (8.4%) inj. 150 MEQ in dextrose 5%-water 850 ML IV SCH (07:55)
[2020-07-04] MEDS ORDERED: acetylcysteine 200 MG/ml 4ml vial PO SCH (08:00)
[2020-07-04 08:30] VITALS: BP 119/80
[2020-07-04 09:16] LABS: BASOPHILS # (AUTO) 0.1 X10'3 (0-0.2); BASOPHILS % (AUTO) 0.7 % (0-1); EOSINOPHILS # (AUTO) 0.4 X10'3 (0-0.9); HEMATOCRIT 32.3 % (42.0-52.0); HEMOGLOBIN 10.6 g/dl (14.0-17.9); LYMPHOCYTES # (AUTO) 1.2 X10'3 (1.1-4.8); LYMPHOCYTES % (AUTO) 12.3 % (21-51); MEAN CORPUSCULAR HEMOGLOBIN 28.9 PG (27.0-31.0); MEAN CORPUSCULAR HGB CONC 32.8 g/dL (33.0-36.5); MEAN PLATELET VOLUME 8.5 FL (7.4-10.4); MONOCYTES # (AUTO) 0.6 X10'3 (0-0.9); MONOCYTES % (AUTO) 6.9 % (2-12); NEUTROPHILS # (AUTO) 7.2 X10'3 (1.8-7.7); NEUTROPHILS % (AUTO) 76.1 % (42-75); PLATELET COUNT 189 X10'3 (140-440); RED BLOOD COUNT 3.67 X10'6 (4.70-6.10); RED CELL DISTRIBUTION WIDTH 15.1 % (11.5-14.5); WHITE BLOOD COUNT 9.4 X10'3 (4.5-11.0)
[2020-07-04 09:24] LABS: ALANINE AMINOTRANSFERASE 22 U/L (12-78); ALBUMIN 2.7 G/DL (3.4-5.0); ALBUMIN/GLOBULIN RATIO 0.6 (1.1-1.5); ALKALINE PHOSPHATASE 43 IU/L (46-116); ANION GAP 6 (8-16); ASPARTATE AMINO TRANSFERASE 13 U/L (10-37); BILIRUBIN,TOTAL 0.5 MG/DL (0.1-1.0); BLOOD UREA NITROGEN 50 MG/DL (7-18); CALCIUM 9.5 MG/DL (8.5-10.1); CHLORIDE 105 MMOL/L (99-107); GLUCOSE 237 MG/DL (70-104); POTASSIUM 4.6 MMOL/L (3.5-5.1); SODIUM 139 MMOL/L (135-145); TOTAL CARBON DIOXIDE 28.4 MMOL/L (24-32); TOTAL PROTEIN 7.1 G/DL (6.4-8.2)
[2020-07-04 09:28] LABS: BUN/CREATININE RATIO 28.1 (5.4-32.0); CREATININE 1.78 MG/DL (0.60-1.10); eGFR 37 ML/MIN
[2020-07-04] MEDS ORDERED: iohexol 350MG/ML 100ml bottle IV ONE (10:04)
[2020-07-04] MEDS ORDERED: iohexol 350 MG/ML 50ML vial IV ONE (10:04)
--- NOTE | 2020-07-04 13:45 | NUR ---
Patient was almost done with bicarb, started leaking at the site, iv infiltrated. Removed IV canula tip intact, pressure bandage placed. Patient vitals stable upon discharge. Patient [employer] will be here at 1430. Patient wanted to wait in the lobby. Patient left in his electric wheelchair in stable condition.
== END 2020-07-04 13:45 | disposition home or self-care (01) ==
LOC: SSTAY O 07:19
PROVIDERS: ATTEND Nurse Practitioner
DX: E11.622 Type 2 diabetes mellitus with other skin ulcer (principal); L97.811 Non-pressure chronic ulcer of other part of right lower leg limited to breakdown of skin; L97.821 Non-pressure chronic ulcer of other part of left lower leg limited to breakdown of skin; L03.115 Cellulitis of right lower limb; L03.116 Cellulitis of left lower limb; I89.0 Lymphedema, not elsewhere classified; M51.36 Other intervertebral disc degeneration, lumbar region; M17.0 Bilateral primary osteoarthritis of knee; M46.1 Sacroiliitis, not elsewhere classified; Z88.2 Allergy status to sulfonamides; R16.0 Hepatomegaly, not elsewhere classified
CPT/HCPCS: 36415; 75635; 80053; 85025; Q9967

== ENCOUNTER 2020-07-06 10:00 | Day surgery (SDC) | payer MEDICARE, MEDICAID ==
[~2020-07-06 10:00] MED LIST changes: -LACT1CAP65 PO; -VANC125C5 PO
[2020-07-06] MEDS ORDERED: LIDOcaine 2% 5ml jelly ONE (11:09)
[2020-07-06] MEDS ORDERED: gentamicin 0.1% topical ointment 15gm TP ONE (12:25)
== END 2020-07-06 13:05 | disposition home or self-care (01) ==
LOC: WOUND CARE 10:00
PROVIDERS: ATTEND Nurse Practitioner
DX: E11.621 Type 2 diabetes mellitus with foot ulcer (principal); L97.522 Non-pressure chronic ulcer of other part of left foot with fat layer exposed; E11.622 Type 2 diabetes mellitus with other skin ulcer; L97.812 Non-pressure chronic ulcer of other part of right lower leg with fat layer exposed; L97.822 Non-pressure chronic ulcer of other part of left lower leg with fat layer exposed; L03.115 Cellulitis of right lower limb; L03.116 Cellulitis of left lower limb; I89.0 Lymphedema, not elsewhere classified; E11.65 Type 2 diabetes mellitus with hyperglycemia; E11.319 Type 2 diabetes mellitus with unspecified diabetic retinopathy without macular edema; E11.22 Type 2 diabetes mellitus with diabetic chronic kidney disease; I13.0 Hypertensive heart and chronic kidney disease with heart failure and stage 1 through stage 4 chronic kidney disease, or unspecified chronic kidney disease; N18.4 Chronic kidney disease, stage 4 (severe); I50.43 Acute on chronic combined systolic (congestive) and diastolic (congestive) heart failure; J44.9 Chronic obstructive pulmonary disease, unspecified; I48.91 Unspecified atrial fibrillation; K21.9 Gastro-esophageal reflux disease without esophagitis; I25.2 Old myocardial infarction; E66.01 Morbid (severe) obesity due to excess calories; F41.9 Anxiety disorder, unspecified; Z68.42 Body mass index [BMI] 45.0-49.9, adult; Z88.2 Allergy status to sulfonamides; Z79.4 Long term (current) use of insulin; Z87.898 Personal history of other specified conditions; Z79.899 Other long term (current) drug therapy; Z98.49 Cataract extraction status, unspecified eye
CPT/HCPCS: 36416; 82948; 97597; 97598

== ENCOUNTER 2020-07-13 10:20 | Day surgery (SDC) | payer MEDICARE, MEDICAID ==
[2020-07-13] MEDS ORDERED: LIDOcaine 2% 5ml jelly ONE ×2 (11:28→11:30)
[2020-07-13] MEDS ORDERED: gentamicin 0.1% topical ointment 15gm TP ONE (13:12)
[2020-07-28] MEDS ORDERED: BENA40TA72 PO (17:30)
[2020-07-28] MEDS ORDERED: CHLO25TA10 PO (17:30)
[2020-07-28] MEDS ORDERED: GENT30OI2 TOP (17:30)
[2020-08-07] MEDS ORDERED: LINE600T14 PO (12:34)
[2020-08-07] MEDS ORDERED: FURO-149 PO (12:34)
[2020-08-07] MEDS ORDERED: APIX5TAB3 PO (12:34)
== END 2020-07-13 14:10 | disposition home or self-care (01) ==
LOC: WOUND CARE 10:20
PROVIDERS: ATTEND Nurse Practitioner
DX: E11.622 Type 2 diabetes mellitus with other skin ulcer (principal); I83.018 Varicose veins of right lower extremity with ulcer other part of lower leg; L97.812 Non-pressure chronic ulcer of other part of right lower leg with fat layer exposed; I83.028 Varicose veins of left lower extremity with ulcer other part of lower leg; L97.822 Non-pressure chronic ulcer of other part of left lower leg with fat layer exposed; E11.621 Type 2 diabetes mellitus with foot ulcer; L97.521 Non-pressure chronic ulcer of other part of left foot limited to breakdown of skin; L03.115 Cellulitis of right lower limb; I89.0 Lymphedema, not elsewhere classified; E11.65 Type 2 diabetes mellitus with hyperglycemia; E11.319 Type 2 diabetes mellitus with unspecified diabetic retinopathy without macular edema; E11.22 Type 2 diabetes mellitus with diabetic chronic kidney disease; I13.0 Hypertensive heart and chronic kidney disease with heart failure and stage 1 through stage 4 chronic kidney disease, or unspecified chronic kidney disease; N18.4 Chronic kidney disease, stage 4 (severe); I50.43 Acute on chronic combined systolic (congestive) and diastolic (congestive) heart failure; J44.9 Chronic obstructive pulmonary disease, unspecified; I48.91 Unspecified atrial fibrillation; K21.9 Gastro-esophageal reflux disease without esophagitis; I25.2 Old myocardial infarction; E66.01 Morbid (severe) obesity due to excess calories; F41.9 Anxiety disorder, unspecified; Z68.42 Body mass index [BMI] 45.0-49.9, adult; Z88.2 Allergy status to sulfonamides; Z79.4 Long term (current) use of insulin; Z87.898 Personal history of other specified conditions; Z79.899 Other long term (current) drug therapy; Z98.49 Cataract extraction status, unspecified eye
CPT/HCPCS: 36416; 82948; 97597; 97598

== ENCOUNTER 2020-07-21 13:30 | Day surgery (SDC) | payer MEDICARE, MEDICAID ==
[2020-07-21] MEDS ORDERED: LIDOcaine 2% 5ml jelly ONE (14:49)
[2020-07-28] MEDS ORDERED: CHLO25TA10 PO (17:30)
[2020-07-28] MEDS ORDERED: BENA40TA72 PO (17:30)
[2020-07-28] MEDS ORDERED: GENT30OI2 TOP (17:30)
== END 2020-07-21 15:47 | disposition home or self-care (01) ==
LOC: WOUND CARE 13:30
PROVIDERS: ATTEND Nurse Practitioner
DX: E11.622 Type 2 diabetes mellitus with other skin ulcer (principal); I83.028 Varicose veins of left lower extremity with ulcer other part of lower leg; L97.822 Non-pressure chronic ulcer of other part of left lower leg with fat layer exposed; I83.018 Varicose veins of right lower extremity with ulcer other part of lower leg; L97.812 Non-pressure chronic ulcer of other part of right lower leg with fat layer exposed; L03.115 Cellulitis of right lower limb; L03.116 Cellulitis of left lower limb; I89.0 Lymphedema, not elsewhere classified; E11.65 Type 2 diabetes mellitus with hyperglycemia; E11.319 Type 2 diabetes mellitus with unspecified diabetic retinopathy without macular edema; E11.22 Type 2 diabetes mellitus with diabetic chronic kidney disease; I13.0 Hypertensive heart and chronic kidney disease with heart failure and stage 1 through stage 4 chronic kidney disease, or unspecified chronic kidney disease; N18.4 Chronic kidney disease, stage 4 (severe); I50.43 Acute on chronic combined systolic (congestive) and diastolic (congestive) heart failure; M19.90 Unspecified osteoarthritis, unspecified site; J44.9 Chronic obstructive pulmonary disease, unspecified; I48.91 Unspecified atrial fibrillation; K21.9 Gastro-esophageal reflux disease without esophagitis; I25.2 Old myocardial infarction; E66.01 Morbid (severe) obesity due to excess calories; F41.9 Anxiety disorder, unspecified; Z68.42 Body mass index [BMI] 45.0-49.9, adult; Z88.2 Allergy status to sulfonamides; Z79.4 Long term (current) use of insulin; Z87.898 Personal history of other specified conditions; Z79.899 Other long term (current) drug therapy; Z98.49 Cataract extraction status, unspecified eye
CPT/HCPCS: 97597; 97598

== ENCOUNTER → 2020-07-28 | Day surgery (SDC) | payer MEDICARE, MEDICAID ==
[~2020-07-28] MED LIST changes: +BENA40TA72 PO; +CHLO25TA10 PO; +GENT30OI2 TOP; +LIDOcaine 2% 5ml jelly ONE; +gentamicin 0.1% topical ointment 15gm TP ONE
== END | disposition home or self-care (01) ==
LOC: WOUND CARE 11:10
PROVIDERS: ATTEND Nurse Practitioner
DX: E11.622 Type 2 diabetes mellitus with other skin ulcer (principal); I83.018 Varicose veins of right lower extremity with ulcer other part of lower leg; L97.812 Non-pressure chronic ulcer of other part of right lower leg with fat layer exposed; I83.028 Varicose veins of left lower extremity with ulcer other part of lower leg; L97.822 Non-pressure chronic ulcer of other part of left lower leg with fat layer exposed; L03.115 Cellulitis of right lower limb; L03.116 Cellulitis of left lower limb; I89.0 Lymphedema, not elsewhere classified; E11.65 Type 2 diabetes mellitus with hyperglycemia; E11.319 Type 2 diabetes mellitus with unspecified diabetic retinopathy without macular edema; E11.22 Type 2 diabetes mellitus with diabetic chronic kidney disease; I13.0 Hypertensive heart and chronic kidney disease with heart failure and stage 1 through stage 4 chronic kidney disease, or unspecified chronic kidney disease; N18.4 Chronic kidney disease, stage 4 (severe); I50.43 Acute on chronic combined systolic (congestive) and diastolic (congestive) heart failure; M19.90 Unspecified osteoarthritis, unspecified site; J44.9 Chronic obstructive pulmonary disease, unspecified; I48.91 Unspecified atrial fibrillation; K21.9 Gastro-esophageal reflux disease without esophagitis; I25.2 Old myocardial infarction; E66.01 Morbid (severe) obesity due to excess calories; F41.9 Anxiety disorder, unspecified; Z68.42 Body mass index [BMI] 45.0-49.9, adult; Z79.4 Long term (current) use of insulin; Z87.898 Personal history of other specified conditions; Z79.899 Other long term (current) drug therapy; Z98.49 Cataract extraction status, unspecified eye; Z87.891 Personal history of nicotine dependence
CPT/HCPCS: 82948; 97597; 97598

== ENCOUNTER → 2020-08-18 | Outpatient (CLI) | payer MEDICARE, MEDICAID ==
[~2020-08-18] MED LIST changes: +APIX5TAB3 PO; -BENA40TA72 PO; -CHLO25TA10 PO; -GENT30OI2 TOP; -GLIM4TAB7 PO; +LINE600T14 PO; -gentamicin 0.1% topical ointment 15gm TP ONE
== END | disposition home or self-care (01) ==
LOC: WOUND CARE 09:38 → EDSTATUS 10:00
PROVIDERS: ATTEND Nurse Practitioner
DX: E11.622 Type 2 diabetes mellitus with other skin ulcer (principal); I83.018 Varicose veins of right lower extremity with ulcer other part of lower leg; L97.812 Non-pressure chronic ulcer of other part of right lower leg with fat layer exposed; I83.028 Varicose veins of left lower extremity with ulcer other part of lower leg; L97.822 Non-pressure chronic ulcer of other part of left lower leg with fat layer exposed; L03.115 Cellulitis of right lower limb; L03.116 Cellulitis of left lower limb; I89.0 Lymphedema, not elsewhere classified; E11.65 Type 2 diabetes mellitus with hyperglycemia; E11.319 Type 2 diabetes mellitus with unspecified diabetic retinopathy without macular edema; E11.22 Type 2 diabetes mellitus with diabetic chronic kidney disease; I13.0 Hypertensive heart and chronic kidney disease with heart failure and stage 1 through stage 4 chronic kidney disease, or unspecified chronic kidney disease; N18.4 Chronic kidney disease, stage 4 (severe); I50.43 Acute on chronic combined systolic (congestive) and diastolic (congestive) heart failure; M19.90 Unspecified osteoarthritis, unspecified site; J44.9 Chronic obstructive pulmonary disease, unspecified; I48.91 Unspecified atrial fibrillation; R16.0 Hepatomegaly, not elsewhere classified; K21.9 Gastro-esophageal reflux disease without esophagitis; E66.01 Morbid (severe) obesity due to excess calories; F41.9 Anxiety disorder, unspecified; Z68.42 Body mass index [BMI] 45.0-49.9, adult; Z79.4 Long term (current) use of insulin; Z87.898 Personal history of other specified conditions; Z79.899 Other long term (current) drug therapy; Z98.49 Cataract extraction status, unspecified eye; Z87.891 Personal history of nicotine dependence
CPT/HCPCS: 82948; 97597; 97598

== ENCOUNTER 2020-08-24 10:57 | Outpatient (CLI) | payer MEDICARE, MEDICAID ==
[~2020-08-24 10:57] MED LIST changes: -LIDOcaine 2% 5ml jelly ONE
[2020-08-24] MEDS ORDERED: LIDOcaine 2% 5ml jelly ONE ×2 (11:41)
[2020-08-25] MEDS ORDERED: iohexol 350MG/ML 100ml bottle IV ONE (10:07)
== END 2020-08-24 23:59 | disposition home or self-care (01) ==
LOC: WOUND CARE 10:57
PROVIDERS: ATTEND Nurse Practitioner
DX: E11.622 Type 2 diabetes mellitus with other skin ulcer (principal); I83.018 Varicose veins of right lower extremity with ulcer other part of lower leg; L97.812 Non-pressure chronic ulcer of other part of right lower leg with fat layer exposed; I83.028 Varicose veins of left lower extremity with ulcer other part of lower leg; L97.822 Non-pressure chronic ulcer of other part of left lower leg with fat layer exposed; L03.115 Cellulitis of right lower limb; L03.116 Cellulitis of left lower limb; I89.0 Lymphedema, not elsewhere classified; E11.65 Type 2 diabetes mellitus with hyperglycemia; E11.319 Type 2 diabetes mellitus with unspecified diabetic retinopathy without macular edema; E11.22 Type 2 diabetes mellitus with diabetic chronic kidney disease; I13.0 Hypertensive heart and chronic kidney disease with heart failure and stage 1 through stage 4 chronic kidney disease, or unspecified chronic kidney disease; N18.4 Chronic kidney disease, stage 4 (severe); I50.43 Acute on chronic combined systolic (congestive) and diastolic (congestive) heart failure; M19.90 Unspecified osteoarthritis, unspecified site; J44.9 Chronic obstructive pulmonary disease, unspecified; I48.91 Unspecified atrial fibrillation; R16.0 Hepatomegaly, not elsewhere classified; K21.9 Gastro-esophageal reflux disease without esophagitis; I25.2 Old myocardial infarction; E66.01 Morbid (severe) obesity due to excess calories; F41.9 Anxiety disorder, unspecified; Z68.42 Body mass index [BMI] 45.0-49.9, adult; Z79.4 Long term (current) use of insulin; Z87.898 Personal history of other specified conditions; Z79.899 Other long term (current) drug therapy; Z98.49 Cataract extraction status, unspecified eye; Z87.891 Personal history of nicotine dependence
CPT/HCPCS: 82948; 97597; 97598; Q9967

== ENCOUNTER 2020-08-30 12:11 | Emergency (ER) | payer MEDICARE, MEDICAID ==
[~2020-08-30] VITALS: Ht 185.4 cm; Wt 163.6 kg
[2020-08-30 14:04] LABS: BASOPHILS # (AUTO) 0.1 X10'3 (0-0.2); BASOPHILS % (AUTO) 1.2 % (0-1); EOSINOPHILS # (AUTO) 0.4 X10'3 (0-0.9); EOSINOPHILS % (AUTO) 4.4 % (0-6); HEMATOCRIT 34.3 % (42.0-52.0); HEMOGLOBIN 11.1 g/dl (14.0-17.9); LYMPHOCYTES # (AUTO) 1.1 X10'3 (1.1-4.8); LYMPHOCYTES % (AUTO) 13.2 % (21-51); MEAN CORPUSCULAR HEMOGLOBIN 27.5 PG (27.0-31.0); MEAN CORPUSCULAR HGB CONC 32.4 g/dL (33.0-36.5); MEAN PLATELET VOLUME 8.1 FL (7.4-10.4); MONOCYTES # (AUTO) 0.6 X10'3 (0-0.9); MONOCYTES % (AUTO) 7.2 % (2-12); NEUTROPHILS # (AUTO) 6.2 X10'3 (1.8-7.7); PLATELET COUNT 226 X10'3 (140-440); RED BLOOD COUNT 4.03 X10'6 (4.70-6.10); RED CELL DISTRIBUTION WIDTH 14.8 % (11.5-14.5); WHITE BLOOD COUNT 8.3 X10'3 (4.5-11.0)
[2020-08-30 14:12] LABS: ALANINE AMINOTRANSFERASE 17 U/L (12-78); ALBUMIN 2.7 G/DL (3.4-5.0); ALBUMIN/GLOBULIN RATIO 0.5 (1.1-1.5); ALKALINE PHOSPHATASE 59 IU/L (46-116); ANION GAP 6 (8-16); ASPARTATE AMINO TRANSFERASE 17 U/L (10-37); BILIRUBIN,TOTAL 0.6 MG/DL (0.1-1.0); BLOOD UREA NITROGEN 28 MG/DL (7-18); CALCIUM 9.2 MG/DL (8.5-10.1); CHLORIDE 104 MMOL/L (99-107); CREATININE 1.65 MG/DL (0.60-1.10); GLUCOSE 85 MG/DL (70-104); POTASSIUM 4.3 MMOL/L (3.5-5.1); SODIUM 137 MMOL/L (135-145); TOTAL PROTEIN 7.7 G/DL (6.4-8.2); eGFR 40 ML/MIN
--- NOTE | 2020-08-30 15:45 | NUR ---
Pt is phoning his family member to transport him to home upon discharge.
[2020-08-30 16:50] VITALS: BP 153/65
== END 2020-08-30 17:20 | disposition home or self-care (01) ==
LOC: ER 12:12
DX: L03.116 Cellulitis of left lower limb (principal); L03.115 Cellulitis of right lower limb; I87.8 Other specified disorders of veins; R06.02 Shortness of breath; I48.91 Unspecified atrial fibrillation; I44.7 Left bundle-branch block, unspecified; E66.01 Morbid (severe) obesity due to excess calories; I12.9 Hypertensive chronic kidney disease with stage 1 through stage 4 chronic kidney disease, or unspecified chronic kidney disease; E11.22 Type 2 diabetes mellitus with diabetic chronic kidney disease; N18.9 Chronic kidney disease, unspecified; F17.200 Nicotine dependence, unspecified, uncomplicated; Z86.14 Personal history of Methicillin resistant Staphylococcus aureus infection; Z68.42 Body mass index [BMI] 45.0-49.9, adult; Z88.2 Allergy status to sulfonamides; Z79.899 Other long term (current) drug therapy; Z79.4 Long term (current) use of insulin
CPT/HCPCS: 36415; 71045; 80053; 83605; 83880; 85025; 87040; 93005; 93971; 99285

== ENCOUNTER 2020-08-31 10:35 | Outpatient (CLI) | payer MEDICARE, MEDICAID ==
[2020-08-31] MEDS ORDERED: LIDOcaine 2% 5ml jelly ONE (11:55)
== END 2020-08-31 23:59 | disposition home or self-care (01) ==
LOC: WOUND CARE 10:35
PROVIDERS: ATTEND Nurse Practitioner
DX: E11.622 Type 2 diabetes mellitus with other skin ulcer (principal); I83.018 Varicose veins of right lower extremity with ulcer other part of lower leg; L97.812 Non-pressure chronic ulcer of other part of right lower leg with fat layer exposed; I83.028 Varicose veins of left lower extremity with ulcer other part of lower leg; L97.822 Non-pressure chronic ulcer of other part of left lower leg with fat layer exposed; L03.115 Cellulitis of right lower limb; L03.116 Cellulitis of left lower limb; I89.0 Lymphedema, not elsewhere classified; E11.65 Type 2 diabetes mellitus with hyperglycemia; E11.319 Type 2 diabetes mellitus with unspecified diabetic retinopathy without macular edema; E11.22 Type 2 diabetes mellitus with diabetic chronic kidney disease; I13.0 Hypertensive heart and chronic kidney disease with heart failure and stage 1 through stage 4 chronic kidney disease, or unspecified chronic kidney disease; N18.4 Chronic kidney disease, stage 4 (severe); I50.43 Acute on chronic combined systolic (congestive) and diastolic (congestive) heart failure; M19.90 Unspecified osteoarthritis, unspecified site; I44.7 Left bundle-branch block, unspecified; J44.9 Chronic obstructive pulmonary disease, unspecified; I48.20 Chronic atrial fibrillation, unspecified; M79.89 Other specified soft tissue disorders; K21.9 Gastro-esophageal reflux disease without esophagitis; I25.2 Old myocardial infarction; E66.01 Morbid (severe) obesity due to excess calories; F41.9 Anxiety disorder, unspecified; Z68.42 Body mass index [BMI] 45.0-49.9, adult; Z79.4 Long term (current) use of insulin; Z87.898 Personal history of other specified conditions; Z98.49 Cataract extraction status, unspecified eye; Z87.891 Personal history of nicotine dependence; Z79.01 Long term (current) use of anticoagulants; Z86.14 Personal history of Methicillin resistant Staphylococcus aureus infection
CPT/HCPCS: 11042; 11045; 82948; 97597

== ENCOUNTER 2020-09-07 10:37 | Outpatient (CLI) | payer MEDICARE, MEDICAID ==
[2020-09-07] MEDS ORDERED: LIDOcaine 2% 5ml jelly ONE ×2 (11:55→11:58)
== END 2020-09-07 23:59 | disposition home or self-care (01) ==
LOC: WOUND CARE 10:37
PROVIDERS: ATTEND Nurse Practitioner
DX: E11.622 Type 2 diabetes mellitus with other skin ulcer (principal); I83.018 Varicose veins of right lower extremity with ulcer other part of lower leg; L97.812 Non-pressure chronic ulcer of other part of right lower leg with fat layer exposed; I83.028 Varicose veins of left lower extremity with ulcer other part of lower leg; L97.822 Non-pressure chronic ulcer of other part of left lower leg with fat layer exposed; L03.115 Cellulitis of right lower limb; L03.116 Cellulitis of left lower limb; I89.0 Lymphedema, not elsewhere classified; E11.65 Type 2 diabetes mellitus with hyperglycemia; E11.319 Type 2 diabetes mellitus with unspecified diabetic retinopathy without macular edema; E11.22 Type 2 diabetes mellitus with diabetic chronic kidney disease; I13.0 Hypertensive heart and chronic kidney disease with heart failure and stage 1 through stage 4 chronic kidney disease, or unspecified chronic kidney disease; N18.4 Chronic kidney disease, stage 4 (severe); I50.43 Acute on chronic combined systolic (congestive) and diastolic (congestive) heart failure; M19.90 Unspecified osteoarthritis, unspecified site; J44.9 Chronic obstructive pulmonary disease, unspecified; I48.91 Unspecified atrial fibrillation; R16.0 Hepatomegaly, not elsewhere classified; K21.9 Gastro-esophageal reflux disease without esophagitis; I25.2 Old myocardial infarction; E66.01 Morbid (severe) obesity due to excess calories; F41.9 Anxiety disorder, unspecified; Z68.42 Body mass index [BMI] 45.0-49.9, adult; Z79.4 Long term (current) use of insulin; Z87.898 Personal history of other specified conditions; Z79.899 Other long term (current) drug therapy; Z98.49 Cataract extraction status, unspecified eye; Z87.891 Personal history of nicotine dependence
CPT/HCPCS: 82948; 97597; 97598

== ENCOUNTER 2020-09-28 09:33 | Outpatient (CLI) | payer MEDICARE, MEDICAID ==
[2020-09-28] MEDS ORDERED: LIDOcaine 2% 5ml jelly ONE ×2 (10:15)
[2020-09-28] MEDS ORDERED: BENA40TA72 PO (13:13)
[2020-09-28] MEDS ORDERED: FURO40TA4 PO (13:14)
[2020-09-28] MEDS ORDERED: APIX5TAB3 PO (13:18)
[2020-09-28] MEDS ORDERED: LINE600I (13:20)
[2020-09-28] MEDS ORDERED: CHLO25TA10 PO (13:21)
== END 2020-09-28 23:59 | disposition home or self-care (01) ==
LOC: WOUND CARE 09:33
PROVIDERS: ATTEND Nurse Practitioner
DX: E11.622 Type 2 diabetes mellitus with other skin ulcer (principal); I83.018 Varicose veins of right lower extremity with ulcer other part of lower leg; L97.811 Non-pressure chronic ulcer of other part of right lower leg limited to breakdown of skin; I83.028 Varicose veins of left lower extremity with ulcer other part of lower leg; L97.821 Non-pressure chronic ulcer of other part of left lower leg limited to breakdown of skin; L03.115 Cellulitis of right lower limb; L03.116 Cellulitis of left lower limb; I89.0 Lymphedema, not elsewhere classified; E11.65 Type 2 diabetes mellitus with hyperglycemia; E11.319 Type 2 diabetes mellitus with unspecified diabetic retinopathy without macular edema; E11.22 Type 2 diabetes mellitus with diabetic chronic kidney disease; I13.0 Hypertensive heart and chronic kidney disease with heart failure and stage 1 through stage 4 chronic kidney disease, or unspecified chronic kidney disease; N18.4 Chronic kidney disease, stage 4 (severe); I50.43 Acute on chronic combined systolic (congestive) and diastolic (congestive) heart failure; M19.90 Unspecified osteoarthritis, unspecified site; J44.9 Chronic obstructive pulmonary disease, unspecified; I48.91 Unspecified atrial fibrillation; R16.0 Hepatomegaly, not elsewhere classified; K21.9 Gastro-esophageal reflux disease without esophagitis; I25.2 Old myocardial infarction; E66.01 Morbid (severe) obesity due to excess calories; F41.9 Anxiety disorder, unspecified; Z68.42 Body mass index [BMI] 45.0-49.9, adult; Z79.4 Long term (current) use of insulin; Z87.898 Personal history of other specified conditions; Z79.899 Other long term (current) drug therapy; Z98.49 Cataract extraction status, unspecified eye; Z87.891 Personal history of nicotine dependence
CPT/HCPCS: 29581; 82948